=== PATIENT | male | born 1980 | race African-American/Black ===

== ENCOUNTER 2018-03-04 10:55 | Inpatient (IN) | payer MEDICAID, OTHER ==
[2018-03-04] MEDS: SOD CHLORIDE 0.9% IV (11:30)
[2018-03-04 11:42] LABS: ADD MAN DIFF? NO
[2018-03-04 11:47] LABS: BASOPHIL # 0.1 10^3/ul (0.0-0.1); BASOPHILS % 0.5 % (0.0-2.0); HEMATOCRIT 48.7 % (42.0-52.0); HEMOGLOBIN 16.3 g/dl (14.0-18.0); LYMPHOCYTES # 1.6 10^3/ul (0.8-2.9); LYMPHOCYTES % 10.3 % (15.0-51.0); MEAN CORPUSCULAR HGB CONC 33.5 g/dl (32.0-37.0); MEAN CORPUSCULAR VOLUME 83.7 fl (82.0-101.0); MONOCYTE # 0.7 10^3/ul (0.3-0.9); MONOCYTES % 4.9 % (0.0-11.0); NEUTROPHIL # 12.6 10^3/ul (1.6-7.5); NEUTROPHILS % 83.8 % (39.0-77.0); PLATELET COUNT 276 10^3/UL (140-415); RED BLOOD COUNT 5.82 10^6/ul (4.70-6.10); RED CELL DISTRIBUTION WIDTH 12.7 % (11.5-14.5)
[2018-03-04 12:05] LABS: MODE ROOM AIR; MetHgb Venous 0.1 %; Sample Type Blood venous; Site VENOUS LINE; Venous COHb 0.6 %; Venous Fraction OxyHgb 65.6 %; Venous Oxygen Sat 66.1 mmHG (55.0-75.0); Venous Total Hemglobin 15.7 g/dl
[2018-03-04 12:06] LABS: BLOOD UREA NITROGEN 11 mg/dl (7-20); CALCIUM 9.8 mg/dl (8.4-10.2); CHLORIDE 97 mmol/L (97-110); CREATININE 1.14 mg/dl (0.61-1.24); Estimated GFR > 60 mL/min (>60); GLUCOSE 397 mg/dl (70-220); MAGNESIUM 1.9 mg/dl (1.7-2.5); PHOSPHORUS 4.1 mg/dl (2.5-4.9); POTASSIUM 4.5 mmol/L (3.5-5.1); SODIUM 135 mmol/L (135-144)
[2018-03-04 12:07] LABS: ANION GAP 33 (5-13)
[2018-03-04 12:09] LABS: CARBON DIOXIDE < 5 mmol/L (21-31)
[2018-03-04] MEDS ORDERED: SODIUM CHLORIDE 23.4% 77 MEQ, POTASSIUM CHLORIDE 40 MEQ in DEXTROSE 10% 1,000 ML IV (12:10)
[2018-03-04] MEDS ORDERED: POTASSIUM CHLORIDE 40 MEQ in SOD CHLORIDE 0.9% 1,000 ML IV (12:10)
[2018-03-04] MEDS ORDERED: SODIUM CHLORIDE 23.4% 77 MEQ in DEXTROSE 10% 1,000 ML IV (12:10)
[2018-03-04] MEDS ORDERED: SOD CHLORIDE 0.9% 1,000 ML IV (12:10)
[2018-03-04] MEDS ORDERED: DEXTROSE 50% 50 ML SYRINGE IV ×2 (12:30)
[2018-03-04] MEDS: LACTATED RINGER S IV (13:16)
[2018-03-04] MEDS: POTASSIUM CHLORIDE 30 MEQ in SOD CHLORIDE 0.9% 1,000 ML IV ×2 (13:18→22:00)
[2018-03-04] MEDS: SODIUM CHLORIDE 23.4% 77 MEQ, POTASSIUM CHLORIDE 30 MEQ in DEXTROSE 10% 1,000 ML IV ×2 (13:28→22:00)
[2018-03-04] MEDS: CEFTRIAXONE 1 GM/50 ML (PMX) 50 ML IVPB (13:50)
[2018-03-04 13:53] LABS: ADD UMIC YES; UR ASCORBIC ACID NEGATIVE (NEGATIVE); UR BACTERIA FEW /HPF (NONE SEEN); UR BILIRUBIN (Dip) NEGATIVE (NEGATIVE); UR BLOOD (Dip) 1+ mg/dL (NEGATIVE); UR CLARITY CLEAR (CLEAR); UR COLOR STRAW (YELLOW); UR GLUCOSE (Dip) 3+ mg/dL (NEGATIVE); UR KETONES (Dip) 2+ mg/dL (NEGATIVE); UR LEUKOCYTE ESTERASE (Dip) NEGATIVE Leu/ul (NEGATIVE); UR NITRITE (Dip) NEGATIVE (NEGATIVE); UR RBC 0 /HPF (0-5); UR SPECIFIC GRAVITY (Dip) 1.026 (1.003-1.030); UR TOTAL PROTEIN (Dip) 2+ mg/dl (NEGATIVE); UR UROBILINOGEN (Dip) NEGATIVE (NEGATIVE); UR WBC 0 /HPF (0-5)
[2018-03-04 14:10] LABS: HEMOGLOBIN A1C 11.2 % (0-5.9)
[2018-03-04] MEDS: LACTATED RINGER'S 500 ML IV (14:10)
[2018-03-04 14:33] LABS: ANION GAP 27 (5-13); BLOOD UREA NITROGEN 10 mg/dl (7-20); CALCIUM 8.9 mg/dl (8.4-10.2); CHLORIDE 101 mmol/L (97-110); CREATININE 0.92 mg/dl (0.61-1.24); Estimated GFR > 60 mL/min (>60); GLUCOSE 320 mg/dl (70-220); MAGNESIUM 1.9 mg/dl (1.7-2.5); PHOSPHORUS 3.4 mg/dl (2.5-4.9); POTASSIUM 4.8 mmol/L (3.5-5.1); SODIUM 133 mmol/L (135-144)
[2018-03-04 14:41] LABS: CARBON DIOXIDE 5 mmol/L (21-31)
[2018-03-04 14:53] LABS: MODE ROOM AIR; MetHgb Venous 0 %; Sample Type Blood venous; Site VENOUS LINE; Venous COHb 0.6 %; Venous Fraction OxyHgb 74.8 %; Venous Oxygen Sat 75.3 mmHG (55.0-75.0); Venous Total Hemglobin 15.2 g/dl
[2018-03-04] MEDS: INSULIN REGULAR, HUMAN 100 UNIT in SOD CHLORIDE 0.9% 100 ML IV (15:15)
[2018-03-04 16:39] LABS: ANION GAP 22 (5-13); BLOOD UREA NITROGEN 7 mg/dl (7-20); CALCIUM 8.8 mg/dl (8.4-10.2); CHLORIDE 104 mmol/L (97-110); CREATININE 0.78 mg/dl (0.61-1.24); Estimated GFR > 60 mL/min (>60); GLUCOSE 297 mg/dl (70-220); MAGNESIUM 1.8 mg/dl (1.7-2.5); PHOSPHORUS 2.8 mg/dl (2.5-4.9); POTASSIUM 4.4 mmol/L (3.5-5.1); SODIUM 134 mmol/L (135-144)
[2018-03-04 16:52] LABS: CARBON DIOXIDE 8 mmol/L (21-31); MODE ROOM AIR; MetHgb Venous 0.1 %; Sample Type Blood venous; Site VENOUS LINE; Venous COHb 0.9 %; Venous Fraction OxyHgb 89.9 %; Venous Oxygen Sat 90.8 mmHG (55.0-75.0); Venous Total Hemglobin 15.4 g/dl
[2018-03-04] MEDS: PANTOPRAZOLE (EC) 40 MG TAB PO (19:32)
[2018-03-04 20:38] LABS: ANION GAP 14 (5-13); BLOOD UREA NITROGEN 6 mg/dl (7-20); CALCIUM 8.8 mg/dl (8.4-10.2); CARBON DIOXIDE 15 mmol/L (21-31); CHLORIDE 105 mmol/L (97-110); CREATININE 0.66 mg/dl (0.61-1.24); Estimated GFR > 60 mL/min (>60); GLUCOSE 226 mg/dl (70-220); MAGNESIUM 1.9 mg/dl (1.7-2.5); PHOSPHORUS 1.7 mg/dl (2.5-4.9); POTASSIUM 3.9 mmol/L (3.5-5.1); SODIUM 134 mmol/L (135-144)
[2018-03-04] MEDS: SUCRALFATE 1 GM TAB PO (21:28)
[2018-03-05 00:34] LABS: MODE ROOM AIR; MetHgb Venous 0.3 %; Sample Type Blood venous; Site VENOUS LINE; Venous COHb 0.5 %; Venous Fraction OxyHgb 94.5 %; Venous Oxygen Sat 95.3 mmHG (55.0-75.0); Venous Total Hemglobin 14.2 g/dl
[2018-03-05 00:55] LABS: ANION GAP 9 (5-13); BLOOD UREA NITROGEN 6 mg/dl (7-20); CALCIUM 8.9 mg/dl (8.4-10.2); CARBON DIOXIDE 21 mmol/L (21-31); CHLORIDE 104 mmol/L (97-110); CREATININE 0.55 mg/dl (0.61-1.24); Estimated GFR > 60 mL/min (>60); GLUCOSE 214 mg/dl (70-220); MAGNESIUM 1.9 mg/dl (1.7-2.5); PHOSPHORUS 1.7 mg/dl (2.5-4.9); POTASSIUM 3.5 mmol/L (3.5-5.1); SODIUM 134 mmol/L (135-144)
[2018-03-05] MEDS: INSULIN REGULAR, HUMAN 100 UNIT in SOD CHLORIDE 0.9% 100 ML IV (01:46)
[2018-03-05] MEDS: POTASSIUM PHOSPHATE 30 MM in SOD CHLORIDE 0.9% 250 ML IVPB (03:43)
[2018-03-05] MEDS: INSULIN GLARGINE [LANTus] (100 UNITS/ML) SYG SC ×2 (03:43→20:56)
[2018-03-05] MEDS: SODIUM CHLORIDE 23.4% 77 MEQ, POTASSIUM CHLORIDE 30 MEQ in DEXTROSE 10% 1,000 ML IV (05:29)
[2018-03-05] MEDS: PANTOPRAZOLE (EC) 40 MG TAB PO (05:48)
[2018-03-05 06:11] LABS: ANION GAP 8 (5-13); BLOOD UREA NITROGEN 6 mg/dl (7-20); CALCIUM 9.1 mg/dl (8.4-10.2); CARBON DIOXIDE 22 mmol/L (21-31); CHLORIDE 106 mmol/L (97-110); CREATININE 0.55 mg/dl (0.61-1.24); Estimated GFR > 60 mL/min (>60); GLUCOSE 118 mg/dl (70-220); MAGNESIUM 1.8 mg/dl (1.7-2.5); PHOSPHORUS 2.3 mg/dl (2.5-4.9); POTASSIUM 3.5 mmol/L (3.5-5.1); SODIUM 136 mmol/L (135-144)
[2018-03-05] MEDS: POTASSIUM CHLORIDE (SR) 20 MEQ TAB PO (09:28)
[2018-03-05] MEDS: MAGNESIUM SULFATE 2 GM/50 ML 50 ML IVPB (09:29)
[2018-03-05] MEDS: INSULIN ASPART [NOVOLOG] 3 ML PEN SC ×8 (09:32→20:55)
[2018-03-05] MEDS: SUCRALFATE 1 GM TAB PO ×4 (09:53→20:46)
[2018-03-05] MEDS: ACCU-CHEK XX (09:54)
[2018-03-05] MEDS ORDERED: INSULIN ASPART [NOVOLOG] 3 ML PEN SC ×2 (11:30)
[2018-03-06] MEDS ORDERED: HYDROCODONE/APAP (5/325) TAB PO
[2018-03-06] MEDS: HYDROCODONE/APAP (5/325) TAB PO ×2 (00:08→00:48)
[2018-03-06] MEDS ORDERED: ACCU-CHEK XX (02:00)
[2018-03-06 05:49] LABS: ADD MAN DIFF? NO
[2018-03-06 05:56] LABS: WHITE BLOOD COUNT 6.5 10^3/ul (4.8-10.8)
[2018-03-06 05:56] LABS: BASOPHIL # 0.1 10^3/ul (0.0-0.1); BASOPHILS % 0.8 % (0.0-2.0); EOSINOPHILS # 0.1 10^3/ul (0.0-0.5); HEMATOCRIT 37.4 % (42.0-52.0); HEMOGLOBIN 13.1 g/dl (14.0-18.0); LYMPHOCYTES # 2.5 10^3/ul (0.8-2.9); LYMPHOCYTES % 37.8 % (15.0-51.0); MEAN CORPUSCULAR HEMOGLOBIN 28.2 pg (29.0-33.0); MEAN CORPUSCULAR VOLUME 80.4 fl (82.0-101.0); MONOCYTE # 0.7 10^3/ul (0.3-0.9); MONOCYTES % 11.1 % (0.0-11.0); NEUTROPHIL # 3.1 10^3/ul (1.6-7.5); NEUTROPHILS % 47.7 % (39.0-77.0); PLATELET COUNT 211 10^3/UL (140-415); RED BLOOD COUNT 4.65 10^6/ul (4.70-6.10); RED CELL DISTRIBUTION WIDTH 12.2 % (11.5-14.5)
[2018-03-06 06:17] LABS: MAGNESIUM 1.7 mg/dl (1.7-2.5)
[2018-03-06 06:17] LABS: PHOSPHORUS 3.3 mg/dl (2.5-4.9)
[2018-03-06 06:18] LABS: ALANINE AMINOTRANSFERASE 15 IU/L (13-69); ALBUMIN 3.7 g/dl (3.3-4.9); ALBUMIN/GLOBULIN RATIO 1.37; ALKALINE PHOSPHATASE 69 IU/L (42-121); ANION GAP 9 (5-13); ASPARTATE AMINO TRANSFERASE 12 IU/L (15-46); BILIRUBIN,INDIRECT 0.7 mg/dl (0-1.1); BILIRUBIN,TOTAL 0.7 mg/dl (0.2-1.3); BLOOD UREA NITROGEN 9 mg/dl (7-20); CALCIUM 9.4 mg/dl (8.4-10.2); CARBON DIOXIDE 32 mmol/L (21-31); CHLORIDE 97 mmol/L (97-110); Estimated GFR > 60 mL/min (>60); GLUCOSE 170 mg/dl (70-220); POTASSIUM 3.1 mmol/L (3.5-5.1); SODIUM 138 mmol/L (135-144); TOTAL PROTEIN 6.4 g/dl (6.1-8.1)
[2018-03-06 06:25] LABS: CHOL/HDL RATIO 6.9 RATIO; HDL CHOLESTEROL 35 mg/dl (28-63); LDL CHOLESTEROL,CALCULATED 137 mg/dl; TRIGLYCERIDES 356 mg/dl (0-149)
[2018-03-06 06:25] LABS: CHOLESTEROL 243 mg/dl (100-200)
[2018-03-06] MEDS: PANTOPRAZOLE (EC) 40 MG TAB PO (06:38)
[2018-03-06] MEDS: KETOROLAC 30 MG INJ IV (06:40)
[2018-03-06] MEDS: INSULIN ASPART [NOVOLOG] 3 ML PEN SC ×4 (08:00→13:41)
[2018-03-06] MEDS: SUCRALFATE 1 GM TAB PO ×2 (08:36→13:41)
[2018-03-06] MEDS: POTASSIUM CHLORIDE (SR) 20 MEQ TAB PO (10:17)
[2018-03-06 16:56] LABS: C-PEPTIDE <0.10 ng/mL (0.80-3.85)
[2018-03-06] MEDS ORDERED: FISH OIL 1,000 MG CAP PO (21:00)
[2018-03-06] MEDS ORDERED: ATORVASTATIN 20 MG TAB PO (21:00)
== END 2018-03-06 15:35 | disposition home or self-care (01) | DRG 639 ==
LOC: E/R 10:55 → 2NE 03-05 17:46 → ICU 12:24
PROVIDERS: Internal Medicine
DX: E10.10 Type 1 diabetes mellitus with ketoacidosis without coma (principal); F17.200 Nicotine dependence, unspecified, uncomplicated; Z79.4 Long term (current) use of insulin
CPT/HCPCS: 36415; 80048; 80053; 80061; 81001; 82803; 82962; 83036; 83735; 84100; 84681; 85025; 96360; 99291-25